=== PATIENT | female | born 1935 | race Caucasian/White ===

== ENCOUNTER → 2017-05-11 | Outpatient (CLI) | payer MEDICARE, OTHER ==
--- NOTE | 2017-05-11 20:05 | RADRPT ---
EXAM DATE/TIME: 05/11/2017 14:43 [place] COMPARISON: No previous studies available for comparison. INDICATIONS : Tremors. Parkinson's disease. DOSE: 5.1 mCi Ioflupane Iodine-123 in 2.5 ml total volume MEDICATION(S): 130 mg Potasium Iodine PO one hour prior to injection SPECT IMAGIN hrs, 30 min IMAGNG: SPECT/CT imaging with fusion was performed. RADIATION DOSE: 30.27 CTDIvol (mGy) MEDICAL HISTORY : Hypertension. SURGICAL HISTORY : Right ankle. ENCOUNTER: Initial ACUITY: 1 day PAIN SCALE: 0/10 LOCATION: cranial TECHNIQUE: SPECT imaging of the brain was performed in sagittal, axial and coronal planes. Attenuation correctio n was performed with computed tomography and both the attenuation correction and non-attenuation nolvia ected data sets were reviewed. FINDINGS: Markedly abnormal scan with no significant Ioflupane uptake in the striatum. Findings are characteris tic of a dopaminergic mediated disease process such as Parkinson's CONCLUSION: Positive [place]ra scan characteristic of a dopaminergic mediated process such as Parkinson 's. Rhett Anguiano MD on May 11, 2017 at 20:01 Board Certified Radiologist. This report was verified electronically.
== END ==
LOC: HRAD 09:53
PROVIDERS: ATTEND Specialist
DX: R25.1 Tremor, unspecified (principal)
CPT/HCPCS: 78607; A9584